=== PATIENT | male | born 1995 ===

== ENCOUNTER 2019-01-04 21:13 | Emergency (ER) | payer OTHER ==
[2019-01-04 23:28] LABS: Alanine Aminotransferase 31 units/L (7-56); Albumin 4.1 g/dL (3.9-5); BUN/Creatinine Ratio 8; Blood Urea Nitrogen 9 mg/dL (9-20); Calcium 9.2 mg/dL (8.4-10.2); Hemolysis Index 6
[2019-01-04 23:48] LABS: Eosinophils # (Auto) 0.3 K/mm3 (0.0-0.4); Eosinophils % (Auto) 1.9 % (0.0-4.3); Hematocrit 45.4 % (35.5-45.6); Hemoglobin 14.6 gm/dl (11.8-15.2); Lymphocytes # (Auto) 1.8 K/mm3 (1.2-5.4); Lymphocytes % (Auto) 13.3 % (13.4-35.0); Mean Corpuscular HGB Conc 32 % (32-34); Mean Corpuscular Volume 80 fl (84-94); Monocytes # (Auto) 0.7 K/mm3 (0.0-0.8); Monocytes % (Auto) 5.2 % (0.0-7.3); Platelet Count 349 K/mm3 (140-440); Red Blood Count 5.68 M/mm3 (3.65-5.03); Red Cell Distribution Width 13.7 % (13.2-15.2)
[2019-01-05 00:13] LABS: Bilirubin,Urine NEG (Negative); Blood,Urine NEG (Negative); Color,Urine Yellow (Yellow); Mucus,Urine 3+ /HPF; Protein,Urine <15 mg/dL mg/dL (Negative); Urobilinogen,Urine < 2.0 mg/dL (<2.0)
[2019-01-05] MEDS ORDERED: MORPHINE IM ONE (04:13)
[2019-01-05] MEDS ORDERED: NACL 0.9% 1000 ML 1,000 ML IV ONE ×2 (04:13→06:02)
[2019-01-05] MEDS ORDERED: ZOFRAN IV ONE (04:13)
--- NOTE | 2019-01-05 04:19 | Emergency Department Report ---
ED Abdominal Pain HPI - General Chief Complaint: Abdominal Pain Stated Complaint: BACK ABD PAIN Source: patient Mode of arrival: Ambulatory Limitations: No Limitations - History of Present Illness Initial Comments: 23-year-old -[place] male presents to the emergency room for right upper abdomen pain. Patient states it started today and has been constant for the whole day. Patient reports it is sharp in nature and makes it better or makes it worse. Patient denies any nausea vomiting or diarrhea. Patient denies any past medical history currently takes no medications on a daily basis and has no known drug allergies. MD Complaint: abdominal pain -: days(s) (1) Location: RLQ Radiation: none Severity scale (0 -10): 10 Quality: sharp Consistency: constant Improves With: nothing Worsens With: movement Associated Symptoms: denies other symptoms - Related Data Allergies Allergy/AdvReac Type Severity Reaction Status Date / Time No Known Allergies Allergy Unverified 01/04/19 21:22 ED Review of Systems ROS: Stated complaint: BACK ABD PAIN Other details as noted in HPI Comment: All other systems reviewed and negative Constitutional: denies: chills, fever Eyes: denies: eye pain, eye discharge, vision change ENT: denies: ear pain, throat pain Respiratory: denies: cough, shortness of breath, wheezing Cardiovascular: denies: chest pain, palpitations Endocrine: no symptoms reported Gastrointestinal: abdominal pain. denies: nausea, vomiting Genitourinary: denies: urgency, dysuria Musculoskeletal: denies: back pain, joint swelling, arthralgia ED Past Medical Hx - Past Medical History Previous Medical History?: Yes Hx Asthma: Yes - Surgical History Past Surgical History?: No - Social History Smoking Status: Never Smoker Substance Use Type: None ED Physical Exam - General Limitations: No Limitations General appearance: alert, in no apparent distress - Head Head exam: Present: atraumatic, normocephalic - Eye Eye exam: Present: EOMI - ENT ENT exam: Present: mucous membranes moist - Neck Neck exam: Present: normal inspection - Respiratory Respiratory exam: Present: normal lung sounds bilaterally. Absent: respiratory distress - Cardiovascular Cardiovascular Exam: Present: bradycardia - GI/Abdominal GI/Abdominal exam: Present: soft, tenderness, normal bowel sounds. Absent: distended - Expanded GI/Abdominal Exam Expanded GI/Abdominal exam: Present: psoas sign, heel tap sign, tenderness at Mcburney's Point - Extremities Exam Extremities exam: Present: normal inspection, full ROM - Back Exam Back exam: Present: normal inspection - Neurological Exam Neurological exam: Present: alert, oriented X3 - Psychiatric Psychiatric exam: Present: normal affect, normal mood - Skin Skin exam: Present: warm, dry, intact, normal color. Absent: rash ED Course Vital Signs 01/04/19 01/04/19 01/05/19 21:33 22:21 05:41 Temperature 32.1 F L 99.3 F 98.6 F Pulse Rate 91 H 87 83 Respiratory 18 18 18 Rate Blood Pressure 147/82 147/82 Blood Pressure 133/86 [Left] O2 Sat by Pulse 99 100 100 Oximetry ED Medical Decision Making - Lab Data Result diagrams: 01/04/19 22:46 01/04/19 22:46 - Medical Decision Making Patient has been evaluated by this provider and [facility]. Patient has a mild elevated wbc's of 13.6 CT scan call for radiologist's report and patient has an acute appendicitis without perforation. Patient will be started on another liter of normal saline Zosyn 4.5 mg IV call placed for [facility] to return call to discuss treatment plan. [place] requested patient be transferred to [facility]. Dr. Simental surgeon has accepted patient. Critical care attestation.: If time is entered above; I have spent that time in minutes in the direct care of this critically ill patient, excluding procedure time. ED Disposition Clinical Impression: Acute appendicitis Disposition: [id number]/TX-70 ANOTHER TYPE HLTHCARE Is pt being admited?: No Does the pt Need Aspirin: No Condition: Stable Instructions: Abdominal Pain (ED) Additional Instructions: Patient will be transferred to [facility] to be evaluated by Dr. Simental surgeon for [place]. Referrals: TAPAN SORIANO MD [Primary Care Provider] - 3-5 Days
--- NOTE | 2019-01-05 05:41 | Cat Scan Report ---
PROCEDURE: CT ABDOMEN PELVIS W CON TECHNIQUE: Routine axial imaging was obtained of the abdomen and pelvis following the intravenous in jection of iodinated contrast. Delayed imaging was obtained of the kidneys ureters and bladder. Sagit scott and coronal reconstructions reviewed. HISTORY: right lower quadrant pain COMPARISONS: None FINDINGS: The lung bases are clear. Pleural fluid is not seen. Liver is normal in size and reveals diminished attenuation compatible hepatic steatosis. The gallblad víctor, biliary tree, pancreas, spleen, and adrenal glands appear normal. The kidneys enhance normally. There is no evidence of hydronephrosis. The abdominal aorta is normal in caliber. The portal vein enh ances normally. The bowel loops are normal in caliber and course. There is fusiform enlargement of the appendix which measures 9.6 mm in diameter. There is associated periappendiceal edema with a small intraluminal shaun cification compatible with acute appendicitis. There is no perforation or abscess. There is no eviden ce of free fluid or adenopathy. In the pelvis the prostate gland and bladder appear normal. There are small benign-appearing inguinal chain lymph nodes bilaterally. The skeletal structures are well-main tained. IMPRESSION: Acute appendicitis. No evidence of perforation or abscess. Hepatic steatosis. The appendicitis findings were discussed with JOSE Sauceda at 5:38 AM on 01/05/2019. This document is electronically signed by Jarod Bush MD., January 05 2019 05:40:24 AM ET
[2019-01-05 05:42] VITALS: BP 133/86
[2019-01-05] MEDS ORDERED: ZOSYN/NS 4.5GM/100ML 4.5 GM/100 ML VIAL IV ONE (06:02)
== END 2019-01-05 08:10 | disposition other institution (70) ==
LOC: ED 21:13
DX: K35.80 Unspecified acute appendicitis (principal); J45.909 Unspecified asthma, uncomplicated
CPT/HCPCS: 36415; 74177; 80053; 81001; 85025; 96365; 96366; 96372; 96375; 99285; J2270; J2405; J2543; J7030; Q9967